=== PATIENT | female | born 2000 | race Hispanic/Latino ===

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

== ENCOUNTER 2019-08-06 11:45 | Outpatient (CLI) | payer MEDICAID ==
[~2019-08-06] VITALS: Ht 170 cm; Wt 80.9 kg
[2019-08-06] MEDS ORDERED: PREN1TAB79 PO (11:57)
[2019-08-06] MEDS ORDERED: FERR-84 PO (11:57)
== END 2019-08-06 12:28 | disposition home or self-care (01) ==
LOC: PREOP 11:45
PROVIDERS: ATTEND Obstetrics & Gynecology
DX: Z01.818 Encounter for other preprocedural examination (principal)

== ENCOUNTER 2019-08-14 05:49 | Inpatient (IN) | payer OTHER ==
[2019-08-14] VITALS (10 sets, daily range): BP systolic 95–137; BP diastolic 63–94
[~2019-08-14] VITALS: Ht 170.2 cm; Wt 81.9 kg
[~2019-08-14 05:49] MED LIST: FERR-84 PO; PREN1TAB79 PO
[2019-08-14] MEDS ORDERED: METOCLOPRAMIDE INJ 10 MG/2 ML (REGLAN) ONE (06:00)
[2019-08-14] MEDS ORDERED: FAMOTIDINE 20MG/2ML IV (PEPCID) ONE (06:01)
[2019-08-14] MEDS ORDERED: CITRIC ACID/SOB CIT (BICITRA) 30 ML UDC ONE (06:01)
--- NOTE | 2019-08-14 06:02 | NUR ---
BALA GARDNER presented to unit via ambulation from ED, accompanied by SO, with c/o TWIN , BREECH PRESENTATION. BALA GARDNER weighed, gowned, voided, and to bed. EFHM and TOCO applied, VS taken. BALA GARDNER oriented to bed controls, call light, TV, heat, and A/C controls.
[2019-08-14] MEDS ORDERED: LACTATED RINGERS 1,000 ML IV PRN ×2 (06:06)
[2019-08-14] MEDS ORDERED: METOCLOPRAMIDE INJ 10 MG/2 ML (REGLAN) IV ONE (06:15)
[2019-08-14] MEDS ORDERED: CITRIC ACID/SOB CIT (BICITRA) 30 ML UDC PO ONE (06:15)
[2019-08-14] MEDS ORDERED: FAMOTIDINE 20MG/2ML IV (PEPCID) IV ONE (06:15)
[2019-08-14] MEDS ORDERED: CATHETER FLUSH 10 ML SYR IV PRN (06:15)
[2019-08-14] MEDS ORDERED: ceFAZolin INJECTION 1,000 MG in WATER (STERILE) FOR INJECTION 10 ML IV ONE (06:15)
[2019-08-14] MEDS ORDERED: fentaNYL INJECTION 100 MCG/2 ML AMP ONE (06:33)
[2019-08-14 06:37] LABS: BILIRUBIN,URINE NEGATIVE (NEGATIVE); CLARITY,URINE CLEAR; COLOR,URINE YELLOW; GLUCOSE, URINE (UA) NEGATIVE (NEGATIVE); KETONES,URINE NEGATIVE (NEGATIVE); LEUKOCYTE ESTERASE ,URINE NEGATIVE (NEGATIVE); NITRITE,URINE NEGATIVE (NEGATIVE); PROTEIN,URINE NEGATIVE (NEGATIVE)
[2019-08-14 06:42] LABS: BASOPHILS % (AUTO) 0 % (0-10); EOSINOPHILS # (AUTO) 0.1 10^3/uL (0.0-0.3); EOSINOPHILS % (AUTO) 1 % (0-10); HEMATOCRIT 33 % (35-52); HEMOGLOBIN 11.1 G/DL (11.5-16.0); LYMPHOCYTES # (AUTO) 2.7 X 10^3 (1.0-4.0); LYMPHOCYTES % (AUTO) 29 % (12-44); MEAN CORPUSCULAR HEMOGLOBIN 28 PG (25-34); MEAN CORPUSCULAR HGB CONC 34 G/DL (32-36); MEAN CORPUSCULAR VOLUME 81 FL (80-99); MEAN PLATELET VOLUME 9.9 FL (7.4-10.4); MONOCYTES # (AUTO) 0.7 X 10^3 (0.0-1.0); MONOCYTES % (AUTO) 8 % (0-12); NEUTROPHILS # (AUTO) 5.7 X 10^3 (1.8-7.8); NEUTROPHILS % (AUTO) 62 % (42-75); PLATELET COUNT 233 10^3/uL (130-400); WHITE BLOOD COUNT 9.3 10^3/uL (4.3-11.0)
[2019-08-14 06:44] LABS: BACTERIA,URINE NEGATIVE /HPF; SQUAMOUS EPITHELIAL CELL,UR 0-2 /HPF
[2019-08-14] MEDS ORDERED: OXYTOCIN PRE-MIX DRIP 1,000 ML IV ONE (06:58)
--- NOTE | 2019-08-14 07:24 | NUR ---
monitors dc'd. pt ambulated to OB c/s room with OR staff @ side. pt stable with no sx's of distress noted. monitor tracing reviewed. Twin A: FHR 120's, moderate variability noted, accels present. Twin B: FHR 125. moderate variability present, accels noted. occasional mild ctx present.
--- NOTE | 2019-08-14 07:25 | Progress Note-Pre Operative ---
Pre-Operative Progress Note H&P Reviewed The H&P was reviewed, patient examined and no changes noted. Date Seen by Provider: Aug 14, 2019 Time Seen by Provider: 07:05 Date H&P Reviewed: Aug 14, 2019 Time H&P Reviewed: 07:15 Pre-Operative Diagnosis: di/di twin gestation/ breech transverse ADOLFO FALCON DO Aug 14, 2019 07:25
[2019-08-14] MEDS ORDERED: ONDANSETRON 4 MG/2 ML (SDV) Z0FRAN ONE (07:37)
[2019-08-14] MEDS ORDERED: PHENYLEPHRINE INJ 10 MG/ML (FOR DRIP KITS ONLY) ONE (07:48)
[2019-08-14] MEDS ORDERED: BUPIVACAINE 0.5% 30 ML (SENSORCAINE) VIAL ONE (08:15)
[2019-08-14] MEDS ORDERED: PHENYLEPHRINE 100 MCG/ML 10 ML (ANESTHESIA) SYR ONE (08:16)
[2019-08-14] MEDS ORDERED: ONDANSETRON 4 MG/2 ML (SDV) Z0FRAN IV PRN (08:30)
[2019-08-14] MEDS ORDERED: NALOXONE 0.4 MG/ML 1 ML (NARCAN) VIAL IV PRN (08:30)
[2019-08-14] MEDS ORDERED: diphenhydrAMINE 50 MG/ML INJ (BENADRYL) IV PRN (08:30)
[2019-08-14] MEDS ORDERED: KETOROLAC 30 MG/ML VIAL ONE (08:40)
[2019-08-14] MEDS ORDERED: OXYTOCIN PRE-MIX DRIP 500 ML IV SCH (08:58)
[2019-08-14] MEDS ORDERED: TETANUS,DIPTH,PERTUSS P/F (BOOSTRIX) 0.5 ML VIAL IM SCH (09:00)
[2019-08-14] MEDS ORDERED: MEASLES,MUMPS,RUBELLA 1 EA INJ SC SCH (09:00)
[2019-08-14] MEDS ORDERED: morphine INJ 4 MG/ML 1 ML (VIAL/SYRINGE) IVP PRN (09:00)
[2019-08-14] MEDS: KETOROLAC 30 MG/ML VIAL IV SCH ×3 (09:00→21:31)
--- NOTE | 2019-08-14 09:04 | Cesarean Section Operative ---
Procedure Procedure Note Pre-operative Diagnosis: Valentina Hall is a 19 /Para 2 /1 ,Gestational Age 37 6/7 week gestation, di di twin, breech/transverse Post-operative Diagnosis: same Procedure: Primary low transverse section Physician: ADOLFO FALCON Field Technical Assistant: BREE Moralez Estimated blood loss: 1000 mL Disposition: stable Findings: Viable female twins, Apgars 8/9, weight 6#3ounces (A), 6#4 ounces (B), intact placenta, 3vc, normal appearing uterus, tubes, and ovaries. Indications:Valentina Hall is a 20 /Para 2 /1 , Gestational Age 37 6/7 week gestation, di di twin, breech/transverse Procedure Details: The patient was seen in pre-op and the procedure was discussed with the patient in full, including the risks, benefits, and alternatives. All questions were answered. The patient was taken to the operating room and a time out was performed, verifying patient and procedure. After spinal anesthesia was placed by our anesthesia colleagues, the patient was placed in the dorsal supine with leftward tilt for uterine displacement.~ Her abdomen was then prepped and draped in the typical sterile fashion. A Pfannenstiel skin incision was made using a scalpel and carried down through the underlying fascia. The fascia was incised in the midline and tented up using Lobo clamps. On both the inferior and superior fascia side the rectus muscle was dissected off bluntly and sharply using Tidwell scissors. The peritoneum was identified and entered bluntly in the midline. This was then stretched laterally using manual strength. After entering the abdominal cavity and confirming lack of intraperitoneal adhesions, a large Austin retractor was placed and the lower uterine segment was visualized. A bladder flap was created with the use of Metzenbaum scissors.~ A scalpel was utilized to make a low transverse uterine incision. Amniotomy was performed with an Allis clamp with return of clear fluid. The infant's head was grasped and brought to the level of the incision. Fundal pressure was applied and infant was delivered without difficulty. Mouth and nares were suctioned with bulb suction. After the umbilical cord was clamped and cut, the was handed off to the pediatric staff. A sample of cord b lood was then obtained. The placenta was delivered intact via uterine massage. The uterus was exteriorized and cleared of all clots and debris. The uterine incision was closed using 0 Vicryl in a running locked fashion. A second imbricated layer was placed using 0 Vicryl in a running fashion as well. The uterus was flexed forward and the posterior rectouterine space was inspected and cleared of all clots and debris. Again the hysterotomy site was examined and hemostasis was observed. The bilateral tubes and ovaries appeared normal. The uterus was placed back into the abdominal cavity and abdominal gutters were cleared of all clots a nd debris. A final check of the uterine incision showed it to be hemostatic. The peritoneum was closed using 3-0 Vicryl in a running fashion. The fascia was closed with 0 Vicryl in a running fashion. The subcutaneous space was hemostatic, and irrigated. The subcutaneous space was closed with 3-0 Vicryl in several single interrupted stitches. The skin was then closed using 4-0 Monocryl in a running subcuticular fashion. The skin edges were reapproximated together and were hemostatic. A pressure dressing was applied. All sponge, lap and needle counts were correct at the end of the procedure per nursing. Vitals - Labs Vital Signs - I&O Vital Signs Date Time Temp Pulse Resp B/P (MAP) Pulse Ox O2 Delivery O2 Flow Rate FiO2 08/14/19 06:18 36.6 95 18 98 Room Air 08/14/19 06:17 36.6 95 18 137/87 (104) 98 Labs Laboratory Tests 08/14/19 06:10: Urine Color YELLOW, Urine Clarity CLEAR, Urine pH 7.0, Urine Specific [place] 1.020, Urine Protein NEGATIVE, Urine Glucose (UA) NEGATIVE, Urine Ketones NEGATIVE, Urine Nitrite NEGATIVE, Urine Bilirubin NEGATIVE, Urine Urobilinogen 0.2, Urine Leukocyte Esterase NEGATIVE, Urine RBC (Auto) NEGATIVE, Urine RBC NONE, Urine WBC NONE, Urine Squamous Epithelial Cells 0-2, Urine Crystals NONE, Urine Bacteria NEGATIVE, Urine Casts NONE, Urine Mucus NEGATIVE, Urine Culture Indicated NO 08/14/19 06:30: White Blood Count 9.3, Red Blood Count 4.03L, Hemoglobin 11.1L, Hematocrit 33L, Mean Corpuscular Volume 81, Mean Corpuscular Hemoglobin 28, Mean Corpuscular Hemoglobin Concent 34, Red Cell Distribution Width 19.0H, Platelet Count 233, Mean Platelet Volume 9.9, Neutrophils (%) (Auto) 62, Lymphocytes (%) (Auto) 29, Monocytes (%) (Auto) 8, Eosinophils (%) (Auto) 1, Basophils (%) (Auto) 0, Neutrophils # (Auto) 5.7, Lymphocytes # (Auto) 2.7, Monocytes # (Auto) 0.7, Eosinophils # (Auto) 0.1, Basophils # (Auto) 0.0 ADOLFO FALCON DO Aug 14, 2019 09:04
--- NOTE | 2019-08-14 09:54 | NUR ---
pt transported to room 308 via bed with s/o and twins @ side. pt stable, no c/o's voiced. call light within reach.
--- NOTE | 2019-08-14 10:00 | NUR ---
Report received from Chastity Huizar RN
--- NOTE | 2019-08-14 10:00 | NUR ---
report given to ISREAL Jordan. care assumed of pt.
--- NOTE | 2019-08-14 10:45 | NUR ---
pericare, pad changed. underwear on. ffu/0 with lt rubra noted, no clots expressed.
[2019-08-14] MEDS: DOCUSATE SODIUM 100 MG (COLACE) CAP PO SCH ×2 (11:02→21:30)
--- NOTE | 2019-08-14 12:19 | NUR ---
RT notified of IS ordered for patient.
[2019-08-14] MEDS: ACETAMINOPHEN 500 MG TAB (TYLENOL) PO SCH ×2 (14:12→21:30)
--- NOTE | 2019-08-14 14:15 | NUR ---
Assisted up to bathroom, ambulates with steady gait. no void, pericare and pad changed. (pt denied feeling to void)
[2019-08-14] MEDS: CATHETER FLUSH 10 ML SYR IV SCH (15:51)
--- NOTE | 2019-08-14 19:55 | NUR ---
Patient in bed, awake. S/O and infants present at bedside. Patient voices no concerns or needs at this time. POC reviewed, call light within reach.
[2019-08-15 01:30] VITALS: BP 112/64
[2019-08-15] MEDS: KETOROLAC 30 MG/ML VIAL IV SCH (03:51)
[2019-08-15 06:27] VITALS: BP 113/70
[2019-08-15 06:36] LABS: BASOPHILS % (AUTO) 0 % (0-10); EOSINOPHILS % (AUTO) 0 % (0-10); HEMATOCRIT 28 % (35-52); HEMOGLOBIN 8.9 G/DL (11.5-16.0); LYMPHOCYTES % (AUTO) 17 % (12-44); MEAN CORPUSCULAR HEMOGLOBIN 27 PG (25-34); MEAN CORPUSCULAR HGB CONC 32 G/DL (32-36); MEAN CORPUSCULAR VOLUME 84 FL (80-99); MEAN PLATELET VOLUME 9.6 FL (7.4-10.4); MONOCYTES # (AUTO) 0.7 X 10^3 (0.0-1.0); MONOCYTES % (AUTO) 6 % (0-12); NEUTROPHILS # (AUTO) 9.4 X 10^3 (1.8-7.8); NEUTROPHILS % (AUTO) 77 % (42-75); PLATELET COUNT 229 10^3/uL (130-400); RED CELL DISTRIBUTION WIDTH 18.7 % (10.0-14.5); WHITE BLOOD COUNT 12.3 10^3/uL (4.3-11.0)
[2019-08-15] MEDS: ACETAMINOPHEN 500 MG TAB (TYLENOL) PO SCH ×3 (07:51→22:20)
[2019-08-15 08:00] VITALS: BP 116/73
--- NOTE | 2019-08-15 08:01 | Postpartum Progress Note ---
JAYLENE HERNANDEZ,MED STUDENT 08/15/19 0801: Note Note Day # 1 Subjective: Patient is without complaints. Ambulating, voiding. Tolerating a regular diet without nausea or vomiting. Normal lochia. Pain is well controlled with oral pain medications. Is . Denies having any fever, chills, SOB, cough. She has not had a bowel movement yet but is having flatus. Objective: Physical Exam: General - Alert and oriented, no apparent distress Abdomen - Soft, appropriately tender to palpation, non-distended, fundus firm at umbilicus Extremities - no edema, negative Brett's bilaterally Pulmonary - CTAB with no wheezes, rhonchi or rales Assessment: post- day # 1, status post . Recovering well, anemic but hemodynamically stable Pain is well controlled with medications Plan: Routine care. Encourage breast feeding. Encourage ambulation. Ferrous sulfate supplementation. Plan for discharge today or tomorrow Vitals - Labs Vital Signs - I&O Vital Signs Date Time Temp Pulse Resp B/P (MAP) Pulse Ox O2 Delivery O2 Flow Rate FiO2 08/15/19 06:27 36.4 81 18 113/70 (84) 99 Room Air 08/15/19 01:30 37.0 85 18 112/64 (80) 97 Room Air 08/14/19 21:30 37.1 91 18 127/76 (93) 99 Room Air 08/14/19 16:25 Room Air 08/14/19 12:17 37.0 76 18 131/77 (95) 97 Room Air 08/14/19 10:45 36.7 76 18 132/86 (101) 99 Room Air 08/14/19 09:47 36.0 93 18 129/90 (103) 100 Room Air 08/14/19 09:47 36.0 18 129/90 (103) 100 Room Air 08/14/19 09:47 Room Air 08/14/19 09:22 36.2 18 120/94 (103) 100 Room Air 08/14/19 09:22 Room Air 08/14/19 09:07 36.6 18 108/80 (89) 100 Room Air 08/14/19 09:07 Room Air 08/14/19 08:51 36.2 18 95/63 (74) 100 Room Air 08/14/19 08:51 Room Air I & O 08/15/19 07:00 Intake Total 610 ml Output Total 1330 ml Balance -720 ml Labs Laboratory Tests 08/15/19 06:13: White Blood Count 12.3H, Red Blood Count 3.30L, Hemoglobin 8.9L, Hematocrit 28L, Mean Corpuscular Volume 84, Mean Corpuscular Hemoglobin 27, Mean Corpuscular Hemoglobin Concent 32, Red Cell Distribution Width 18.7H, Platelet Count 229, Mean Platelet Volume 9.6, Neutrophils (%) (Auto) 77H, Lymphocytes (%) (Auto) 17, Monocytes (%) (Auto) 6, Eosinophils (%) (Auto) 0, Basophils (%) (Auto) 0, Neutrophils # (Auto) 9.4H, Lymphocytes # (Auto) 2.0, Monocytes # (Auto) 0.7, Eosinophils # (Auto) 0.0, Basophils # (Auto) 0.0 Microbiology 08/14/19 MRSA Screen - Final, Complete MRSA not isolated ADOLFO FALCON DO 08/15/19 0923: Note Note I have seen and examined the patient and agree with exam and assessment. Twin CS delivery, day 1. will consider DC tomorrow or Saturday., JAYLENE HERNANDEZ,MED STUDENT Aug 15, 2019 08:01 ADOLFO FALCON DO Aug 15, 2019 09:23
[2019-08-15] MEDS: FERROUS SULF 325 MG (IRON) TAB PO SCH ×2 (10:20→17:04)
[2019-08-15] MEDS: DOCUSATE SODIUM 100 MG (COLACE) CAP PO SCH ×2 (10:20→21:19)
[2019-08-15] MEDS: IBUPROFEN 600 MG (MOTRIN) TAB PO SCH ×3 (10:20→21:19)
--- NOTE | 2019-08-15 11:43 | Anesthesia-Regional Post-Op ---
Regional Patient Condition Mental Status: Alert, Oriented x3 Circulation: Same as Pre-Op Headache: Absent Sensation: Full Recovery Motor Block: Absent Post Op Complications Complications None Follow Up Care/Instructions Patient Instructions None needed. Anesthesia/Patient Condition Patient is doing well, no complaints, stable vital signs, no apparent adverse anesthesia problems. No complications reported per nursing. SHANI FORD CRNA Aug 15, 2019 11:43
[2019-08-15 12:00] VITALS: BP 112/74
[2019-08-15] MEDS: CATHETER FLUSH 10 ML SYR IV SCH ×2 (14:00→22:12)
[2019-08-15 17:45] VITALS: BP 113/75
--- NOTE | 2019-08-15 20:15 | NUR ---
Fundal massage done at this time. Fundus is firm et just below the umbilicus.
[2019-08-16] VITALS: BP 119/81
[2019-08-16] MEDS: IBUPROFEN 600 MG (MOTRIN) TAB PO SCH ×2 (03:10→09:05)
[2019-08-16] MEDS: CATHETER FLUSH 10 ML SYR IV SCH (03:23)
[2019-08-16 06:00] VITALS: BP 112/73
[2019-08-16] MEDS: FERROUS SULF 325 MG (IRON) TAB PO SCH (06:19)
[2019-08-16] MEDS: ACETAMINOPHEN 500 MG TAB (TYLENOL) PO SCH (06:20)
[2019-08-16] MEDS: DOCUSATE SODIUM 100 MG (COLACE) CAP PO SCH (09:05)
--- NOTE | 2019-08-16 09:07 | Postpartum Progress Note ---
Post Op Post-operative Day #2 s/p PLTCS, Subjective: Patient is without complaints. Ambulating, voiding after mart removed. Tolerating a regular diet without nausea or vomiting. Normal lochia. Pain is well controlled with oral pain medications. Passing flatus. breast feeding. Objective: 08/16/19 08/16/19 00:00 06:00 Temp 37.2 36.9 Pulse 75 75 Resp 20 20 B/P (MAP) 119/81 (94) 112/73 (86) Pulse Ox 99 O2 Delivery Room Air 08/16/19 00:00 Intake Total 1750 ml Balance 1750 ml Physical Exam: General - Alert and oriented, no apparent distress Abdomen - Soft, appropriately tender to palpation, non-distended, fundus firm at umbilicus Incision - clean, dry and intact; no erythema or induration, no drainage Extremities - no edema, negative Brett's bilaterally Assessment: 1. post-operative day # 2, status post PLTCS. Recovering well, hemodynamically stable 2. Acute blood loss anemia Plan: Routine post-operative care. Encourage breast feeding. Encourage ambulation. VTE prophylaxis: SCDs. Ferrous sulfate supplementation. Plan for discharge today or tomorrow Vitals - Labs Vital Signs - I&O Vital Signs Date Time Temp Pulse Resp B/P (MAP) Pulse Ox O2 Delivery O2 Flow Rate FiO2 08/16/19 06:00 36.9 75 20 112/73 (86) 99 08/16/19 00:00 37.2 75 20 119/81 (94) Room Air 08/15/19 17:45 36.6 86 16 113/75 (88) 99 08/15/19 12:00 36.3 88 16 112/74 (87) 99 I & O 08/16/19 07:00 Intake Total 1750 ml Balance 1750 ml Labs Microbiology 08/14/19 MRSA Screen - Final, Complete MRSA not isolated ADOLFO FALCON DO Aug 16, 2019 09:07
[2019-08-16] MEDS ORDERED: FERR-84 PO (09:28)
[2019-08-16] MEDS ORDERED: DCS100C PO (09:28)
[2019-08-16] MEDS ORDERED: ACET-93 PO (09:28)
[2019-08-16] MEDS ORDERED: IBUP-844 PO (09:28)
[2019-08-16] MEDS ORDERED: OXC5T PO (09:28)
--- NOTE | 2019-08-16 09:34 | Discharge Summary ---
Discharge Summary Hospital Course Problems Reviewed?: Yes Hospital Course Date of Admission: Aug 14, 2019 at 05:49 Admission Diagnosis : Family Physician/Provider: No,Local Physician Date of Discharge: 08/16/19 Discharge Diagnosis: [ ] Hospital Course: [ ] Labs and Pending Lab Test: Microbiology 08/14/19 MRSA Screen - Final, Complete MRSA not isolated Home Meds Active Dok (Docusate Sodium) 100 Mg Capsule 100 Mg PO BID Acetaminophen 500 Mg Tablet 1,000 Mg PO Q8HR Oxycodone IR (Oxycodone HCl) 5 Mg Tab 5 Mg PO Q4HR Ibu (Ibuprofen) 600 Mg Tablet 600 Mg PO Q6H Iron (Ferrous Sulfate) 325 Mg Tablet 325 Mg PO DAILY Reported Vitamins ( Vit W-Ca,Fe,FA(<1 mg)) 1 Each Tablet 1 Each PO DAILY Activity: Activity as Tolerated Driving Instructions: No Driving for 1 Week NO SMOKING: NO SMOKING Nothing Inside Vagina: No Douching, No [place], No Tampons Discharge Diet: No Restrictions Symptoms to Report to : Swelling Increased, Bleeding Excessive, Pain Increased, Fever Over 101 Degrees F, Vaginal Bleeding Increase, Cramps in Feet or Legs, Vaginal Discharge Foul For Any Problems or Questions: Contact Your Physician Infection Signs and Symptoms: Increased Redness, Foul Odor of Wound, Increased Drainage, Skin Itchy or Has a Rash, Increased Swelling, Temperature Above 101 F Operative Area Clean and Dry: Keep Incision Clean/Dry Stitches/[place]/Dermabond: Dermabond Bathing Instructions: Shower Discharge Physical Examination Allergies: Coded Allergies: No Known Drug Allergies (Unverified , 08/06/19) Vitals & I&Os Vital Signs Date Time Temp Pulse Resp B/P (MAP) Pulse Ox O2 Delivery O2 Flow Rate FiO2 08/16/19 06:00 36.9 75 20 112/73 (86) 99 08/16/19 00:00 Room Air Discharge Summary Date of Admission Aug 14, 2019 at 05:49 Date of Discharge Discharge Date: Aug 16, 2019 Discharge Time: 09:30 Admission Diagnosis twin 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
== END 2019-08-16 12:15 | disposition home or self-care (01) | DRG 787 ==
LOC: LDRP 05:49
PROVIDERS: ADMIT Obstetrics & Gynecology; ATTEND Obstetrics & Gynecology
PROC: 10D00Z1 Extraction of Products of Conception, Low, Open Approach (ICD-10-PCS; principal; 2019-08-14 07:27)
DX: O32.1XX0 Maternal care for breech presentation, not applicable or unspecified (principal); D62 Acute posthemorrhagic anemia; O30.043 Twin pregnancy, dichorionic/diamniotic, third trimester; O90.81 Anemia of the puerperium; Z37.2 Twins, both liveborn; Z3A.37 37 weeks gestation of pregnancy
CPT/HCPCS: 36415; 81000; 85025; 86850; 86900; 86901; 87081; 94664